=== PATIENT | male | born 1990 | race Caucasian/White ===

== ENCOUNTER 2021-07-07 14:52 | Emergency (ER) | payer BC ==
[~2021-07-07] VITALS: Ht 193 cm; Wt 118.2 kg
[2021-07-07 15:05] VITALS: BP 203/115
[2021-07-07] MEDS ORDERED: iohexol 300mg/ml 100ml inj. ONE (15:18)
[2021-07-07] MEDS ORDERED: iohexol 350MG/ML 100ml bottle IV ONE (16:14)
[2021-07-07] MEDS ORDERED: morphine 4 MG/ML inj SYRINge IV ONE ×2 (18:00→18:35)
[2021-07-07] MEDS ORDERED: ketorolac trometh. 30mg/ml inj. IV ONE (18:05)
[2021-07-07] MEDS ORDERED: ONDA4TAB12 PO (18:08)
[2021-07-07] MEDS ORDERED: HYDR-3965 PO (18:08)
== END 2021-07-07 18:51 | disposition home or self-care (01) ==
LOC: ER 14:52
DX: S32.019A Unspecified fracture of first lumbar vertebra, initial encounter for closed fracture (principal); M54.50 Low back pain, unspecified; R10.12 Left upper quadrant pain; Z79.899 Other long term (current) drug therapy; W19.XXXA Unspecified fall, initial encounter; Y93.89 Activity, other specified; Y92.89 Other specified places as the place of occurrence of the external cause; Y99.8 Other external cause status
CPT/HCPCS: 71260; 74177; 96374; 96375; 96376; 99285; J1885; J2270; Q9967

== ENCOUNTER 2023-04-19 15:58 | Emergency (ER) | payer BC ==
[~2023-04-19] VITALS: Ht 193 cm; Wt 109.1 kg
[~2023-04-19 15:58] MED LIST: ONDA4TAB12 PO
[2023-04-19 16:19] VITALS: BP 122/71; PULSE 102; RESP 14; TEMP 98.6; O2SAT 98
== END 2023-04-19 17:48 ==
LOC: ER 15:58
DX: V98.8XXA Other specified transport accidents, initial encounter; Y93.89 Activity, other specified; Y92.89 Other specified places as the place of occurrence of the external cause; Y99.8 Other external cause status
CPT/HCPCS: 99283